=== PATIENT | female | born 1950 | race Caucasian/White ===

== ENCOUNTER 2016-11-20 16:53 | Inpatient (IN) | payer MEDICARE, OTHER ==
[~2016-11-20] VITALS: Ht 172.7 cm; Wt 77.6 kg
[2016-11-20] MEDS ORDERED: ALBUTEROL SULFATE 2.5 MG/3 ML NEBU ONE ×2 (17:13→18:24)
[2016-11-20] MEDS ORDERED: IPRATROPIUM BROMIDE 0.5 MG/2.5 ML NEBU ONE (17:13)
[2016-11-20] MEDS ORDERED: IPRATROPIUM BROMIDE 0.5 MG/2.5 ML NEBU NEB ONE (17:15)
[2016-11-20] MEDS ORDERED: NITROGLYCERIN OINT 1 GM PACKET TP ONE ×2 (17:15→17:34)
[2016-11-20] MEDS ORDERED: LORAZEPAM 2 MG/1 ML VIAL IV ONE (17:15)
[2016-11-20] MEDS ORDERED: ALBUTEROL SULFATE 2.5 MG/3 ML NEBU NEB ONE ×2 (17:15→18:15)
--- NOTE | 2016-11-20 17:20 | NUR ---
GLORIA CATH AXCESSED, UNABLE TO DRAW BLOOD, PT THEBN REC'D ATIVAN PER MD ORDERS, EKG DONE, PT RECEIVING RESP TX.MONITOR SHOWS, NSR/XA7=643% ON ROOM AIR.
[2016-11-20] MEDS ORDERED: LORAZEPAM 2 MG/1 ML VIAL ONE (17:24)
[2016-11-20] MEDS ORDERED: ATOR40TA PO (17:44)
[2016-11-20] MEDS ORDERED: PROM25TA15 PO (17:44)
[2016-11-20] MEDS ORDERED: L. A1CAP5 PO (17:44)
[2016-11-20] MEDS ORDERED: BACL10TA PO (17:44)
[2016-11-20] MEDS ORDERED: POTA20TA83 PO (17:44)
[2016-11-20] MEDS ORDERED: SPIR25TA PO (17:44)
[2016-11-20] MEDS ORDERED: ATEN25TA PO (17:44)
[2016-11-20] MEDS ORDERED: MOME17SP NS (17:44)
[2016-11-20] MEDS ORDERED: HYDR-548 PO (17:44)
[2016-11-20] MEDS ORDERED: IPRA3AMP IH (17:44)
[2016-11-20] MEDS ORDERED: LUBI24CA5 PO (17:44)
[2016-11-20] MEDS ORDERED: FURO40TA5 PO (17:44)
[2016-11-20] MEDS ORDERED: TRAM50TA2 PO (17:44)
[2016-11-20] MEDS ORDERED: DIPH50CA37 PO (17:44)
[2016-11-20] MEDS ORDERED: ASPI-605 PO (17:44)
[2016-11-20] MEDS ORDERED: ACLI400A2 IH (17:44)
[2016-11-20] MEDS ORDERED: ESOM40CA PO (17:44)
[2016-11-20] MEDS ORDERED: GABA300C PO (17:44)
[2016-11-20] MEDS ORDERED: ALBU8HFA4 IH (17:44)
[2016-11-20] MEDS ORDERED: IBUP-1958 PO (17:44)
[2016-11-20] MEDS ORDERED: ISOS60TA4 PO (17:44)
[2016-11-20 17:48] LABS: BASOPHILS # (AUTO) 0.1 K/uL (0.0-8.0); BASOPHILS % (AUTO) 1.2 % (0.0-2.0); CREATININE 1.8 mg/dL (0.6-1.3); EOSINOPHILS # (AUTO) 0.1 K/uL (0.0-0.7); EOSINOPHILS % (AUTO) 1.4 % (0.0-7.0); HEMATOCRIT 44.3 % (37-47); HEMOGLOBIN 14.5 G/DL (12.0-16.0); LYMPHOCYTES # (AUTO) 2.8 K/UL (0.8-4.8); LYMPHOCYTES % (AUTO) 35.3 % (20.5-51.5); MEAN CORPUSCULAR HEMOGLOBIN 27.8 UUG (27.0-31.0); MEAN CORPUSCULAR HGB CONC 33 g/dL (32.0-37.0); MEAN CORPUSCULAR VOLUME 85.2 FL (81.0-99.0); MONOCYTES # (AUTO) 0.3 K/UL (0.1-1.30); NEUTROPHILS # (AUTO) 4.6 K/UL (1.8-8.9); NEUTROPHILS % (AUTO) 58.1 % (38.5-71.5); PLATELET COUNT (AUTO) 284 K/UL (150-450); POTASSIUM 4.4 mmol/L (3.5-5.1); WHITE BLOOD COUNT (AUTO) 7.9 K/UL (4.0-11.2)
[2016-11-20 17:53] LABS: BILIRUBIN,DIRECT 0.1 mg/dL (0.0-0.2); BILIRUBIN,TOTAL 0.4 mg/dL (0.2-1.0); TOTAL PROTEIN, SERUM 8.4 g/dL (6.4-8.2)
[2016-11-20] MEDS ORDERED: CLOPIDOGREL 75 MG TABLET PO ONE (18:00)
[2016-11-20] MEDS ORDERED: CLOPIDOGREL 75 MG TABLET ONE (18:13)
[2016-11-20] MEDS ORDERED: LEVOFLOXACIN 750 MG/D5W 150 ML PIGGYBACK IV ONE (18:30)
--- NOTE | 2016-11-20 18:46 | NUR ---
NTG PASTE REMOVED DUE TO BP=81/48, SY=109, DR JULES NOTIFIED.
[2016-11-20] MEDS ORDERED: LEVOFLOXACIN 750MG/D5W 150 ML IV ONE (19:08)
--- NOTE | 2016-11-20 19:17 | NUR ---
SBAR REPORT TO LATHA SAEZ -2ND FLOOR. ALSO REPORT TO ZAKIYA VALENTINE, PRESENTLY PT RECEIVING, LEVAQUIN IV PB.
[2016-11-20] MEDS ORDERED: MORPHINE SULFATE 2 MG/1 ML DISP.SYRIN IV PRN (19:30)
[2016-11-20] MEDS ORDERED: ACETAMINOPHEN 325 MG TABLET PO PRN (19:30)
[2016-11-20] MEDS ORDERED: HYDROCODONE/APAP 10-325 MG TABLET PO PRN (19:30)
[2016-11-20] MEDS ORDERED: diphenhydrAMINE 50 MG CAPSULE PO PRN (19:30)
[2016-11-20 20:00] VITALS: BP 99/67
--- NOTE | 2016-11-20 20:08 | NUR ---
Pt. admitted to TELE, under care of Dr. Montague Belongs List completed
[2016-11-20] MEDS: IV 1/2NS 1000 ML 1,000 ML IV PRN (20:28)
[2016-11-20] MEDS: ATORVASTATIN 40 MG TABLET PO SCH (20:48)
[2016-11-20] MEDS: GABAPENTIN 300 MG CAPSULE PO SCH (20:48)
[2016-11-20] MEDS: BACLOFEN 10 MG TABLET PO SCH (20:48)
[2016-11-20] MEDS: TRAMADOL HCL 50 MG TABLET PO PRN (20:49)
[2016-11-20] MEDS: PROMETHAZINE HCL 25 MG TABLET PO PRN (21:00)
[2016-11-20] MEDS: METOPROLOL TARTRATE 25 MG TABLET PO SCH (21:00)
[2016-11-20] MEDS: methylPREDNISolone SOD SUCC 40 MG/ML VIAL IV SCH (22:00)
[2016-11-20] MEDS: ALBUTEROL SULFATE 2.5 MG/3 ML NEBU NEB PRN (23:17)
[2016-11-20] MEDS: IPRATROPIUM BROMIDE 0.5 MG/2.5 ML NEBU NEB PRN (23:17)
[2016-11-21 00:33] VITALS: BP 106/64
--- NOTE | 2016-11-21 01:26 | NUR ---
NSG: received pt. via [employer] around 1999, alert oriented x4. Diagnosis of COPD. Complained of back pain, pain meds given. Relief noted, patient asleep and well rested. Vital signs stable. All needs attended. Will continue to monitor.
[2016-11-21] MEDS: PROMETHAZINE HCL 25 MG TABLET PO PRN ×3 (02:52→18:03)
[2016-11-21] MEDS ORDERED: HYDROCODONE/APAP 10-325 MG TABLET ONE (03:00)
[2016-11-21] MEDS: GABAPENTIN 300 MG CAPSULE PO SCH ×3 (03:35→20:11)
[2016-11-21] MEDS: ALBUTEROL SULFATE 2.5 MG/3 ML NEBU NEB PRN ×3 (04:01→20:07)
[2016-11-21] MEDS: IPRATROPIUM BROMIDE 0.5 MG/2.5 ML NEBU NEB PRN ×3 (04:01→20:07)
[2016-11-21 04:12] LABS: *BILIRUBIN,URIN NEGATIVE (NEGATIVE); *BLOOD, URINE 1+ (NEGATIVE); *CLARITY,URINE SLIGHTLY CLOUDY (CLEAR); *COLOR,URINE YELLOW (YELLOW); *KETONES,URINE NEGATIVE (NEGATIVE); *PROTEIN,URINE 1+ (NEGATIVE); *UROBILINOGEN,URINE 0.2 E.U./dl (NORMAL); LEUKOCYTE ESTERASE ,URINE 3+ (NEGATIVE); NITRITE, URINE NEGATIVE (NEGATIVE); PH,URINE 5.5 (5.0-8.0); UGLUCOSE NEGATIVE (NEGATIVE)
[2016-11-21 04:17] LABS: BACTERIA,URINE MANY /HPF (NONE SEEN); RBC,URINE 0-3 /HPF (0-3); WBC,URINE 80-100 /HPF (0-3)
[2016-11-21 04:18] LABS: SQUAMOUS EPITHELIAL CELL,UR MODERATE /HPF (NONE SEEN)
[2016-11-21] MEDS: methylPREDNISolone SOD SUCC 40 MG/ML VIAL IV SCH ×3 (05:58→21:03)
[2016-11-21] MEDS: PANTOPRAZOLE SODIUM 40 MG TABLET.DR PO SCH (06:02)
[2016-11-21] MEDS: BACLOFEN 10 MG TABLET PO SCH ×2 (06:36→20:11)
[2016-11-21 07:04] LABS: BILIRUBIN,TOTAL 0.2 mg/dL (0.2-1.0); CREATININE 1.7 mg/dL (0.6-1.3); MAGNESIUM 1.9 mg/dL (1.8-2.4); POTASSIUM 4.4 mmol/L (3.5-5.1); TOTAL PROTEIN, SERUM 7.5 g/dL (6.4-8.2)
[2016-11-21 07:07] LABS: BASOPHILS % (AUTO) 0.2 % (0.0-2.0); EOSINOPHILS # (AUTO) 0.1 K/uL (0.0-0.7); EOSINOPHILS % (AUTO) 0.9 % (0.0-7.0); HEMATOCRIT 38.5 % (37-47); HEMOGLOBIN 12.5 G/DL (12.0-16.0); LYMPHOCYTES % (AUTO) 15.5 % (20.5-51.5); MEAN CORPUSCULAR HEMOGLOBIN 27.8 UUG (27.0-31.0); MEAN CORPUSCULAR HGB CONC 32 g/dL (32.0-37.0); MEAN CORPUSCULAR VOLUME 85.8 FL (81.0-99.0); MONOCYTES # (AUTO) 0.1 K/UL (0.1-1.30); MONOCYTES % (AUTO) 2.2 % (0.0-11.0); NEUTROPHILS # (AUTO) 4.9 K/UL (1.8-8.9); NEUTROPHILS % (AUTO) 81.2 % (38.5-71.5); PLATELET COUNT (AUTO) 260 K/UL (150-450); RED BLOOD CELL COUNT(AUTO) 4.49 MIL/UL (4.2-5.4); WHITE BLOOD COUNT (AUTO) 6.1 K/UL (4.0-11.2)
[2016-11-21 07:08] LABS: THYROID STIMULATING HORMONE 1.095 mIU/mL (0.358-3.740)
--- NOTE | 2016-11-21 08:00 | NUR ---
RESTING IN BED WITH EYES NO SIGNS OF PAIN OR DISTRESS, SR ON MONITOR
[2016-11-21] MEDS: TRAMADOL HCL 50 MG TABLET PO PRN ×2 (08:03→16:46)
[2016-11-21] MEDS: ASPIRIN EC 81 MG TABLET.DR PO SCH (08:04)
[2016-11-21] MEDS: MOMETASONE FUROATE NASAL 17 GM SPRAY.PUMP NS SCH ×2 (08:05→16:43)
[2016-11-21] MEDS: METOPROLOL TARTRATE 25 MG TABLET PO SCH ×2 (08:05→21:04)
[2016-11-21] MEDS: ISOSORBIDE MONONITRATE 60 MG TAB.SR.24H PO SCH (08:05)
[2016-11-21 11:25] VITALS: BP 114/68
[2016-11-21] MEDS: IV 1/2NS 1000 ML 1,000 ML IV PRN (11:47)
--- NOTE | 2016-11-21 12:00 | NUR ---
SEEN BY PHYSICAL THERAPIST SEE NOTES, PAIN ASSESSMENT Q2 HRS
[2016-11-21] MEDS: HYDROCODONE/APAP 10-325 MG TABLET PO PRN ×2 (12:03→20:12)
[2016-11-21 15:48] VITALS: BP 133/74
--- NOTE | 2016-11-21 16:09 | NUR ---
SEEN BY DR DOZIER SEE NOTES, RSTING COMFORTABLY IN BED NO SIGNS OF PAIN OR DISTRESS SR/SB ON MONITOR
[2016-11-21] MEDS ORDERED: LEVOFLOXACIN 250MG /D5W 250 MG in PREMIXED 1 EACH IV SCH (18:00)
[2016-11-21] MEDS ORDERED: DEXTROSE 50% 50 ML DISP.SYRIN IV PRN (19:15)
[2016-11-21 20:00] VITALS: BP 106/57
[2016-11-21] MEDS: PROCHLORPERAZINE MALEATE 10 MG TABLET PO PRN (20:11)
[2016-11-21 21:00] VITALS: BP 114/53
[2016-11-21] MEDS: ATORVASTATIN 40 MG TABLET PO SCH (21:03)
[2016-11-21 21:04] LABS: *CREATININE,URINE 64.5 mg/dL (30-125)
[2016-11-21] MEDS: BLOOD SUGAR DIAGNOSTIC 1 EACH STRIP VI SCH (21:04)
[2016-11-21] MEDS: INSULIN REGULAR, HUMAN 300 UNIT/3 ML VIAL SQ PRN (21:05)
[2016-11-22] VITALS: BP 97/46
[2016-11-22] MEDS: GABAPENTIN 300 MG CAPSULE PO SCH ×3 (03:11→20:09)
[2016-11-22] MEDS: IV 1/2NS 1000 ML 1,000 ML IV PRN ×2 (03:11→22:44)
[2016-11-22 04:00] VITALS: BP 95/49
[2016-11-22] MEDS: PANTOPRAZOLE SODIUM 40 MG TABLET.DR PO SCH (06:10)
[2016-11-22 06:54] LABS: CREATININE 1.1 mg/dL (0.6-1.3); MAGNESIUM 2.1 mg/dL (1.8-2.4); PHOSPHOROUS 2.8 mg/dL (2.5-4.9); POTASSIUM 4.9 mmol/L (3.5-5.1)
[2016-11-22] MEDS: BLOOD SUGAR DIAGNOSTIC 1 EACH STRIP VI SCH ×4 (07:11→22:44)
[2016-11-22 07:28] LABS: EOSINOPHILS # (AUTO) 0.2 K/uL (0.0-0.7); HEMATOCRIT 34.4 % (37-47); HEMOGLOBIN 11.4 G/DL (12.0-16.0); LYMPHOCYTES # (AUTO) 0.8 K/UL (0.8-4.8); LYMPHOCYTES % (AUTO) 4.8 % (20.5-51.5); MEAN CORPUSCULAR HEMOGLOBIN 28.4 UUG (27.0-31.0); MEAN CORPUSCULAR HGB CONC 33 g/dL (32.0-37.0); MEAN CORPUSCULAR VOLUME 86.1 FL (81.0-99.0); MONOCYTES # (AUTO) 0.5 K/UL (0.1-1.30); MONOCYTES % (AUTO) 2.9 % (0.0-11.0); NEUTROPHILS # (AUTO) 14.8 K/UL (1.8-8.9); NEUTROPHILS % (AUTO) 91.3 % (38.5-71.5); PLATELET COUNT (AUTO) 235 K/UL (150-450); WHITE BLOOD COUNT (AUTO) 16.3 K/UL (4.0-11.2)
[2016-11-22] MEDS: BACLOFEN 10 MG TABLET PO SCH ×2 (07:44→20:09)
[2016-11-22] MEDS: INSULIN REGULAR, HUMAN 300 UNIT/3 ML VIAL SQ PRN ×4 (07:44→22:46)
[2016-11-22] MEDS: MOMETASONE FUROATE NASAL 17 GM SPRAY.PUMP NS SCH ×2 (08:12→16:46)
[2016-11-22] MEDS: methylPREDNISolone SOD SUCC 40 MG/ML VIAL IV SCH ×2 (08:12→20:10)
[2016-11-22] MEDS: ASPIRIN EC 81 MG TABLET.DR PO SCH (08:17)
[2016-11-22] MEDS: ISOSORBIDE MONONITRATE 60 MG TAB.SR.24H PO SCH (08:18)
[2016-11-22] MEDS: METOPROLOL TARTRATE 25 MG TABLET PO SCH ×2 (08:18→20:10)
[2016-11-22] MEDS: HYDROCODONE/APAP 10-325 MG TABLET PO PRN ×2 (08:26→20:09)
[2016-11-22] MEDS: PROCHLORPERAZINE MALEATE 10 MG TABLET PO PRN ×2 (08:26→20:09)
[2016-11-22] MEDS: ALBUTEROL SULFATE 2.5 MG/3 ML NEBU NEB PRN ×3 (10:35→19:41)
[2016-11-22] MEDS: IPRATROPIUM BROMIDE 0.5 MG/2.5 ML NEBU NEB PRN ×3 (10:35→19:41)
[2016-11-22 11:38] VITALS: BP 117/54
[2016-11-22] MEDS: TRAMADOL HCL 50 MG TABLET PO PRN (14:29)
[2016-11-22 15:34] VITALS: BP 112/60
[2016-11-22] MEDS: LEVOFLOXACIN 500 MG/D5W 500 MG in PREMIXED 1 EACH IV SCH (16:47)
[2016-11-22 19:52] VITALS: BP 100/42
[2016-11-22] MEDS: ATORVASTATIN 40 MG TABLET PO SCH (20:09)
[2016-11-23] MEDS: GABAPENTIN 300 MG CAPSULE PO SCH ×3 (03:10→20:19)
--- NOTE | 2016-11-23 04:00 | NUR ---
PT SLEEPING WELL OVERNIGHT, MEDICATED FOR BACK AND NECK PAIN,AMBULATES TO BATHROOM WITH ASSIST STILL NO BM BUT PASS GAS.CONTINUE WITH IV FLUIDS AND ANTIBIOTICS ,VSS,AFEBRILE.NO SIGNIFICANT.
[2016-11-23 04:13] VITALS: BP 106/36
[2016-11-23] MEDS: PANTOPRAZOLE SODIUM 40 MG TABLET.DR PO SCH (06:25)
[2016-11-23] MEDS: BLOOD SUGAR DIAGNOSTIC 1 EACH STRIP VI SCH ×4 (06:27→20:22)
[2016-11-23 06:48] LABS: BASOPHILS % (AUTO) 0.1 % (0.0-2.0); EOSINOPHILS % (AUTO) 0.1 % (0.0-7.0); HEMATOCRIT 33.8 % (37-47); HEMOGLOBIN 11.3 G/DL (12.0-16.0); LYMPHOCYTES # (AUTO) 0.8 K/UL (0.8-4.8); LYMPHOCYTES % (AUTO) 6.2 % (20.5-51.5); MEAN CORPUSCULAR HEMOGLOBIN 28.8 UUG (27.0-31.0); MEAN CORPUSCULAR HGB CONC 33 g/dL (32.0-37.0); MEAN CORPUSCULAR VOLUME 86.2 FL (81.0-99.0); MONOCYTES # (AUTO) 0.4 K/UL (0.1-1.30); MONOCYTES % (AUTO) 3.1 % (0.0-11.0); NEUTROPHILS # (AUTO) 11.4 K/UL (1.8-8.9); NEUTROPHILS % (AUTO) 90.5 % (38.5-71.5); PLATELET COUNT (AUTO) 236 K/UL (150-450); RED BLOOD CELL COUNT(AUTO) 3.92 MIL/UL (4.2-5.4); WHITE BLOOD COUNT (AUTO) 12.6 K/UL (4.0-11.2)
[2016-11-23 07:04] LABS: BILIRUBIN,TOTAL 0.1 mg/dL (0.2-1.0); PHOSPHOROUS 3.3 mg/dL (2.5-4.9); POTASSIUM 4.6 mmol/L (3.5-5.1); TOTAL PROTEIN, SERUM 6.7 g/dL (6.4-8.2)
[2016-11-23 07:14] LABS: MAGNESIUM 2.1 mg/dL (1.8-2.4)
[2016-11-23 07:36] LABS: LYMPHOCYTES % (MANUAL) 8 % (20-40); MONOCYTES % (MANUAL) 3 % (2-10); NEUTROPHILS % (MANUAL) 89 % (42-75)
[2016-11-23] MEDS: HYDROCODONE/APAP 10-325 MG TABLET PO PRN ×2 (08:41→16:40)
[2016-11-23] MEDS: ISOSORBIDE MONONITRATE 60 MG TAB.SR.24H PO SCH (08:42)
[2016-11-23] MEDS: BACLOFEN 10 MG TABLET PO SCH ×2 (08:42→20:19)
[2016-11-23] MEDS: ASPIRIN EC 81 MG TABLET.DR PO SCH (08:43)
[2016-11-23] MEDS: PROCHLORPERAZINE MALEATE 10 MG TABLET PO PRN ×2 (08:43→16:39)
[2016-11-23] MEDS: METOPROLOL TARTRATE 25 MG TABLET PO SCH ×2 (08:43→20:19)
[2016-11-23] MEDS: MOMETASONE FUROATE NASAL 17 GM SPRAY.PUMP NS SCH ×2 (08:44→16:39)
[2016-11-23] MEDS: methylPREDNISolone SOD SUCC 40 MG/ML VIAL IV SCH ×2 (08:44→20:20)
[2016-11-23 09:09] LABS: ABG BASE EXCESS -0.3 mmol/L; ABG HCO3 23.8 mmol/L; ABG PCO2 37.3 mmHg (35.0-45.0); ABG PH 7.423 (7.350-7.450); ABG PO2 80.3 mmHg (75.0-100.0); ABG SITE RIGHT RADIAL; ABG TOTAL HEMOGLOBIN 12.9 G/dL (12.0-16.0); COHb 0.5 % (0.5-1.5); MetHb 0.3 % (0.0-1.5); O2Hb 95.1 % (94.0-97.0); VENT MODE Mask - Venturi
[2016-11-23] MEDS: ALBUTEROL SULFATE 2.5 MG/3 ML NEBU NEB PRN ×2 (11:02→19:23)
[2016-11-23] MEDS: IPRATROPIUM BROMIDE 0.5 MG/2.5 ML NEBU NEB PRN ×2 (11:02→19:22)
[2016-11-23 11:37] VITALS: BP 110/58
[2016-11-23] MEDS: TRAMADOL HCL 50 MG TABLET PO PRN (12:09)
[2016-11-23 15:28] VITALS: BP 108/64
[2016-11-23] MEDS: LEVOFLOXACIN 500 MG/D5W 500 MG in PREMIXED 1 EACH IV SCH (16:41)
[2016-11-23] MEDS ORDERED: Blood Sugar Diagnostic VI (16:52)
[2016-11-23] MEDS ORDERED: POTA10TA15 PO (16:52)
[2016-11-23] MEDS ORDERED: HYDR-548 PO (16:52)
[2016-11-23] MEDS ORDERED: METO25TA6 PO (16:52)
[2016-11-23] MEDS ORDERED: ALBU2.5V7 NEB (16:52)
[2016-11-23] MEDS ORDERED: PRED20TA PO (16:52)
[2016-11-23] MEDS ORDERED: PANT40TA2 PO (16:52)
[2016-11-23] MEDS ORDERED: ACET325T53 PO (16:52)
[2016-11-23] MEDS ORDERED: FURO-152 PO (16:52)
[2016-11-23] MEDS ORDERED: BACL10TA PO (16:52)
[2016-11-23] MEDS ORDERED: GABA-534 PO (16:52)
[2016-11-23] MEDS ORDERED: IPRA0.2S6 NEB (16:52)
[2016-11-23] MEDS ORDERED: DEXT50DI8 IV (16:52)
[2016-11-23] MEDS ORDERED: INSU100V28 SQ (16:52)
[2016-11-23] MEDS: INSULIN REGULAR, HUMAN 300 UNIT/3 ML VIAL SQ PRN (17:14)
[2016-11-23 20:00] VITALS: BP 138/75
[2016-11-23 20:19] VITALS: BP 138/75
[2016-11-23] MEDS: ATORVASTATIN 40 MG TABLET PO SCH (20:19)
--- NOTE | 2016-11-23 20:54 | NUR ---
NSG: TRANSFER TO ARU, ALL HS MEDS GIVEN. BELONGINGS AND PAPERWORKS SENT WITH PT.
== END 2016-11-23 20:53 | DRG 190 ==
LOC: ER 16:54 → TELE 18:42 → MED 11-22 11:54
PROVIDERS: ADMIT Internal Medicine; ATTEND Internal Medicine
DX: J44.0 Chronic obstructive pulmonary disease with (acute) lower respiratory infection (principal); N17.0 Acute kidney failure with tubular necrosis; N39.0 Urinary tract infection, site not specified; D68.59 Other primary thrombophilia; I69.351 Hemiplegia and hemiparesis following cerebral infarction affecting right dominant side; J20.8 Acute bronchitis due to other specified organisms; J44.1 Chronic obstructive pulmonary disease with (acute) exacerbation; M06.9 Rheumatoid arthritis, unspecified; K58.1 Irritable bowel syndrome with constipation; K21.9 Gastro-esophageal reflux disease without esophagitis; Z87.01 Personal history of pneumonia (recurrent); Z99.81 Dependence on supplemental oxygen; I25.2 Old myocardial infarction; Z83.49 Family history of other endocrine, nutritional and metabolic diseases; Z83.3 Family history of diabetes mellitus; Z82.49 Family history of ischemic heart disease and other diseases of the circulatory system; Z87.891 Personal history of nicotine dependence; Z90.49 Acquired absence of other specified parts of digestive tract; Z88.6 Allergy status to analgesic agent; Z74.09 Other reduced mobility; M19.90 Unspecified osteoarthritis, unspecified site; I34.1 Nonrheumatic mitral (valve) prolapse; I25.10 Atherosclerotic heart disease of native coronary artery without angina pectoris; I13.10 Hypertensive heart and chronic kidney disease without heart failure, with stage 1 through stage 4 chronic kidney disease, or unspecified chronic kidney disease; E11.22 Type 2 diabetes mellitus with diabetic chronic kidney disease; N18.9 Chronic kidney disease, unspecified; Z88.8 Allergy status to other drugs, medicaments and biological substances; Z88.1 Allergy status to other antibiotic agents; J84.10 Pulmonary fibrosis, unspecified; H40.9 Unspecified glaucoma; G89.29 Other chronic pain; T38.0X5A Adverse effect of glucocorticoids and synthetic analogues, initial encounter; Y92.89 Other specified places as the place of occurrence of the external cause; Z79.82 Long term (current) use of aspirin; Z79.899 Other long term (current) drug therapy; F41.9 Anxiety disorder, unspecified; E86.9 Volume depletion, unspecified; R94.31 Abnormal electrocardiogram [ECG] [EKG]
CPT/HCPCS: 36415; 36600; 70030-TC; 71010; 83735; 84100; 84300; 84443; 85025; 85730; 93005; 93307; 94640; 94664; 97116; 97161; 97530; A4663; J1815; J1956; J2060; J2270; J2920; J3490; J3535; J3590; Q0163; Q0164; Q0169

== ENCOUNTER 2016-11-23 12:12 | Inpatient (IN) | payer MEDICARE, OTHER ==
[~2016-11-23] VITALS: Ht 167.6 cm; Wt 71.2 kg
[~2016-11-23 12:12] MED LIST: ACLI400A2 IH; ALBU8HFA4 IH; ASPI-605 PO; ATEN25TA PO; ATOR40TA PO; BACL10TA PO; DIPH50CA37 PO; ESOM40CA PO; FURO40TA5 PO; GABA300C PO; HYDR-548 PO; IBUP-1958 PO; IPRA3AMP IH; ISOS60TA4 PO; L. A1CAP5 PO; LUBI24CA5 PO; MOME17SP NS; POTA20TA83 PO; PROM25TA15 PO; SPIR25TA PO; TRAM50TA2 PO
[2016-11-23] MEDS ORDERED: INSU100V28 SQ (16:52)
[2016-11-23] MEDS ORDERED: DEXT50DI8 IV (16:52)
[2016-11-23] MEDS ORDERED: POTA10TA15 PO (16:52)
[2016-11-23] MEDS ORDERED: IPRA0.2S6 NEB (16:52)
[2016-11-23] MEDS ORDERED: BACL10TA PO (16:52)
[2016-11-23] MEDS ORDERED: ACET325T53 PO (16:52)
[2016-11-23] MEDS ORDERED: HYDR-548 PO (16:52)
[2016-11-23] MEDS ORDERED: ALBU2.5V7 NEB (16:52)
[2016-11-23] MEDS ORDERED: PANT40TA2 PO (16:52)
[2016-11-23] MEDS ORDERED: Blood Sugar Diagnostic VI (16:52)
[2016-11-23] MEDS ORDERED: PRED20TA PO (16:52)
[2016-11-23] MEDS ORDERED: FURO-152 PO (16:52)
[2016-11-23] MEDS ORDERED: GABA-534 PO (16:52)
[2016-11-23] MEDS ORDERED: METO25TA6 PO (16:52)
--- NOTE | 2016-11-23 21:05 | NUR ---
ADMITTED TO ARU, ROOM 103 WITH DIAGNOSIS OF COPD/ CHF. ORIENTED TO ROOM, CALL LIGHT, TV, AND ARU ROUTINE. ON OXYGEN AT 3 LPM/NASAL CANNULA WITHOUT C/O SOB. AND SATS GREATER THAN 93%. NO C/O PAIN OR DISCOMFORT.ADMISSION INTERVIEW QUESTIONS INITIATED.
[2016-11-23 21:30] VITALS: BP 135/74
[2016-11-23] MEDS ORDERED: Z GUARD REMEDY PASTE 57 GM TUBE TOP PRN (22:00)
[2016-11-23] MEDS ORDERED: BACLOFEN 10 MG TABLET PO SCH (22:30)
[2016-11-23] MEDS ORDERED: DEXTROSE 50% 50 ML DISP.SYRIN IV PRN ×2 (22:30)
[2016-11-23] MEDS ORDERED: INSULIN REGULAR, HUMAN 300 UNIT/3 ML VIAL SQ PRN (22:30)
--- NOTE | 2016-11-23 22:30 | NUR ---
DR COSTELLO NOTIFIED OF ADMISSION AND NEED TO COMPLETE MED RECON
[2016-11-23] MEDS: ALBUTEROL SULFATE 2.5 MG/3 ML NEBU NEB PRN (23:38)
[2016-11-23] MEDS: IPRATROPIUM BROMIDE 0.5 MG/2.5 ML NEBU NEB PRN (23:38)
[2016-11-23] MEDS: GABAPENTIN 300 MG CAPSULE PO SCH (23:41)
--- NOTE | 2016-11-23 23:41 | NUR ---
MED REC DONE BY DR COSTELLO. FITST DOSE MEDS GIVEN NOW.RECEIVING PRN HHN NOW [place] FOR C/O SLIGHT SOB WITH ACTIVITY. SATS GREATER THAN 95 ON OXYGEN AT 3 LPM/ NASAL CANNULA,
[2016-11-23] MEDS ORDERED: GABAPENTIN 300 MG CAPSULE ONE (23:49)
[2016-11-23] MEDS ORDERED: BACLOFEN 10 MG TABLET ONE (23:49)
[2016-11-23] MEDS ORDERED: ALBUTEROL SULFATE 2.5 MG/3 ML NEBU ONE (23:50)
[2016-11-23] MEDS ORDERED: IPRATROPIUM BROMIDE 0.5 MG/2.5 ML NEBU ONE (23:50)
[2016-11-24] MEDS: TRAMADOL HCL 50 MG TABLET PO PRN ×3 (01:41→21:43)
[2016-11-24] MEDS: PROMETHAZINE HCL 25 MG TABLET PO PRN ×4 (01:42→21:42)
[2016-11-24] MEDS ORDERED: TRAMADOL HCL 50 MG TABLET ONE (01:50)
[2016-11-24] MEDS ORDERED: PROMETHAZINE HCL 25 MG TABLET ONE (01:50)
--- NOTE | 2016-11-24 06:00 | NUR ---
SLEPT WELL TONIGHT. DOES HAVE A BIT OF SOB ON ROOM AIR WHEN GOING TO TOILET BUT RECOVERS WITHIN 5 MINS WHEN BACK IN BED. AMBULATED TO TOILET WITH WALKER AND STANDBY ASSIST WITH STEADY GAIT.RESTING EASY AT PRESENT WITHOUT C/O PAIN. MORNING ACCUCHECK IS 113 TODAY.CALL LIGHT WITHIN REACH
[2016-11-24] MEDS: PANTOPRAZOLE SODIUM 40 MG TABLET.DR PO SCH (06:32)
[2016-11-24] MEDS: GABAPENTIN 300 MG CAPSULE PO SCH ×3 (06:33→21:35)
[2016-11-24] MEDS: BLOOD SUGAR DIAGNOSTIC 1 EACH STRIP VI SCH ×4 (06:38→21:35)
[2016-11-24] MEDS ORDERED: PANTOPRAZOLE SODIUM 40 MG TABLET.DR PO ONE (06:41)
[2016-11-24] MEDS ORDERED: GABAPENTIN 300 MG CAPSULE ONE (06:41)
--- NOTE | 2016-11-24 07:07 | NUR ---
Patient received from mold shifter, resting comfortably in bed, no signs of acute distress noted. VS WNL, no complaints of pain at this time. No other verbalized needs at this time, family observed at bedside, no needs noted. Safety and fall precautions maintained, call light within reach.
[2016-11-24 08:01] VITALS: BP 123/70
[2016-11-24] MEDS: ISOSORBIDE MONONITRATE 60 MG TAB.SR.24H PO SCH (08:53)
[2016-11-24] MEDS: ASPIRIN EC 81 MG TABLET.DR PO SCH (08:53)
[2016-11-24] MEDS: HYDROCODONE/APAP 10-325 MG TABLET PO PRN ×2 (08:53→15:04)
[2016-11-24] MEDS: METOPROLOL TARTRATE 25 MG TABLET PO SCH ×2 (08:54→21:00)
[2016-11-24] MEDS: FUROSEMIDE 20 MG TABLET PO SCH (08:54)
[2016-11-24] MEDS ORDERED: predniSONE 20 MG TABLET PO SCH (09:00)
[2016-11-24] MEDS: POTASSIUM CHLORIDE 10 MEQ CAPSULE.SA PO SCH (09:27)
[2016-11-24] MEDS: BACLOFEN 10 MG TABLET PO SCH ×2 (09:27→21:36)
[2016-11-24] MEDS: predniSONE 20 MG TABLET PO SCH ×2 (11:04→17:15)
--- NOTE | 2016-11-24 19:30 | NUR ---
RECEIVED PATIENT AWAKE, ALERT, AND ORIENTED X3 WITHOUT C/O PAIN, DISCOMFORT OR RESPIRATORY DISTRESS ON OXYGEN, RESTING COMFORTABLY IN BED. CONSTIPATED SINCE LAST SATURDAY. MED ORDERS OBTAINED.CALL LIGHT WITHIN REACH AND BED ALARM ON AAT.
[2016-11-24 20:00] VITALS: BP 110/69
[2016-11-24] MEDS ORDERED: MAGNESIUM HYDROXIDE 30 ML LIQUID UDC ONE (20:37)
[2016-11-24] MEDS ORDERED: BISACODYL 5 MG TABLET.DR PO ONE (21:00)
[2016-11-24] MEDS: ATORVASTATIN 40 MG TABLET PO SCH (21:35)
[2016-11-24 21:44] VITALS: BP 110/69
--- NOTE | 2016-11-25 | NUR ---
COMPLETED ABOUT 3800 ML OF THE GOLYTLY. HAD INCONTINENT LARGE BROWN STOOL. DOES NOT LOOK CLEAR AT ALL AT THIS POINT. STARTED CHANGE IN DIET TO NPO AFTER MIDNIGHT. PATIENT UNDERSTANDS NOT TO DRINK ANYTHING. CALL LIGHT WITHIN REACH
[2016-11-25] MEDS: PROMETHAZINE HCL 25 MG TABLET PO PRN ×3 (05:40→18:02)
[2016-11-25] MEDS: HYDROCODONE/APAP 10-325 MG TABLET PO PRN ×3 (05:41→18:01)
[2016-11-25] MEDS: GABAPENTIN 300 MG CAPSULE PO SCH ×3 (05:41→22:01)
--- NOTE | 2016-11-25 06:00 | NUR ---
SLEPT WELL TONIGHT.MORNING ACCUCHECK IS 88. MEDICATED FOR GENERALIZED PAIN OF ARTHRITIS. HAD LARGE SOFT BM RESPONSE FROM DULCOLAX. NO RESPIRATORY DISTRESS TONIGHT ON OXYGEN AT 2 LPM/NASAL CANNULA.STATES SHE FEELS BETTER TODAY SINCE ADMISSION. CALL LIGHT WITHIN REACH. APPEARS IN NAD
[2016-11-25] MEDS: PANTOPRAZOLE SODIUM 40 MG TABLET.DR PO SCH (06:05)
[2016-11-25] MEDS: BLOOD SUGAR DIAGNOSTIC 1 EACH STRIP VI SCH ×4 (06:54→22:08)
[2016-11-25 07:10] LABS: CREATININE 0.9 mg/dL (0.6-1.3); POTASSIUM 4.1 mmol/L (3.5-5.1)
[2016-11-25 07:21] LABS: BASOPHILS # (AUTO) 0.1 K/uL (0.0-8.0); BASOPHILS % (AUTO) 0.7 % (0.0-2.0); EOSINOPHILS % (AUTO) 0.1 % (0.0-7.0); HEMATOCRIT 36.6 % (37-47); HEMOGLOBIN 12.3 G/DL (12.0-16.0); LYMPHOCYTES # (AUTO) 1.5 K/UL (0.8-4.8); MEAN CORPUSCULAR HEMOGLOBIN 28.7 UUG (27.0-31.0); MEAN CORPUSCULAR HGB CONC 34 g/dL (32.0-37.0); MEAN CORPUSCULAR VOLUME 85.1 FL (81.0-99.0); MONOCYTES # (AUTO) 0.6 K/UL (0.1-1.30); MONOCYTES % (AUTO) 5.7 % (0.0-11.0); NEUTROPHILS # (AUTO) 7.8 K/UL (1.8-8.9); NEUTROPHILS % (AUTO) 78.5 % (38.5-71.5); PLATELET COUNT (AUTO) 278 K/UL (150-450)
--- NOTE | 2016-11-25 07:30 | NUR ---
RECIEVED PT LYING IN BED, AWAKE, ALERT AND ORIENTEDX3. VERY PLEASANT AND TALKS A LOT. MOVES ALL EXTREMETIES AND PT WALKS WITH A WALKER. NO APPARENT DISTRESS NOTED. PT IS ON O2 AT 2LNC FOR HER CHRONIC FIBROSIS. NO SOB NOTED AT THIS TIME.
[2016-11-25 07:32] VITALS: BP 120/62
--- NOTE | 2016-11-25 08:00 | NUR ---
ATE WELL FOR BREAKFAST.
--- NOTE | 2016-11-25 10:00 | NUR ---
PT HAS A PT ACTIVITY AND DOING WELL.
[2016-11-25] MEDS: SENNOSIDES/DOCUSATE SODIUM TABLET PO SCH (10:33)
[2016-11-25] MEDS: FUROSEMIDE 20 MG TABLET PO SCH (10:34)
[2016-11-25] MEDS: ISOSORBIDE MONONITRATE 60 MG TAB.SR.24H PO SCH (10:34)
[2016-11-25] MEDS: ASPIRIN EC 81 MG TABLET.DR PO SCH (10:34)
[2016-11-25] MEDS: BACLOFEN 10 MG TABLET PO SCH ×2 (10:35→22:02)
[2016-11-25] MEDS: predniSONE 20 MG TABLET PO SCH ×2 (10:47→18:01)
[2016-11-25] MEDS: POTASSIUM CHLORIDE 10 MEQ CAPSULE.SA PO SCH (10:47)
[2016-11-25] MEDS: METOPROLOL TARTRATE 25 MG TABLET PO SCH ×2 (10:48→22:03)
--- NOTE | 2016-11-25 11:50 | NUR ---
PT C/O PAIN ON HER LOWER BACK . MEDICATED WITH NORCO I TAB AND PHENERGAN 1 TAB. VSS.
[2016-11-25] MEDS: LIDOCAINE 5% PATCH TD SCH (12:46)
[2016-11-25] MEDS: IPRATROPIUM BROMIDE 0.5 MG/2.5 ML NEBU NEB PRN ×2 (15:11→19:24)
[2016-11-25] MEDS: ALBUTEROL SULFATE 2.5 MG/3 ML NEBU NEB PRN ×2 (15:11→19:24)
--- NOTE | 2016-11-25 17:00 | NUR ---
RECIEVED A CALL FROM [employer]. PT IS POSITIVE FOR MRSA NARES. NOTIFIED DR COSTELLO AND ORDERED BACTROBAN OINTMENT.
--- NOTE | 2016-11-25 18:00 | NUR ---
INFORMED THE PT ABOUT THE ISOLATION. PT C/O PAIN ON THE RIGHT SHOULDER, AND MEDICATED WITH NORCO 1 TAB AND PHENERGAN I TAB, TOLERATING WELL.
--- NOTE | 2016-11-25 19:30 | NUR ---
RECEIVED PATIENT AWAKE, ALERT, AND ORIENTED X3. NO C/O RESPIRATORY DISTRESS ON OXYGEN AT 2 LPM/ NASAL CANNULA. AMBULATED TO TOILET WITH WALKER AND STANDBY ASSIST.COLLECTED CLEAN CATCH URINE FOR U/A, AND C/S. SENT TO LAB. NO C/O DISCOMFORT AT PRESENT. IN NO ACUTE DISTRESS AT THIS TIME.CALL LIGHT WITHIN REACH AAT. BED ALARM ON
[2016-11-25 21:51] VITALS: BP 112/64
[2016-11-25] MEDS: ATORVASTATIN 40 MG TABLET PO SCH (22:00)
[2016-11-25] MEDS: MUPIROCIN 2% OINT 22 GM TUBE NS SCH (22:02)
[2016-11-25] MEDS: INSULIN REGULAR, HUMAN 300 UNIT/3 ML VIAL SQ PRN (22:18)
[2016-11-25 22:57] LABS: *BILIRUBIN,URIN NEGATIVE (NEGATIVE); *BLOOD, URINE 2+ (NEGATIVE); *CLARITY,URINE CLEAR (CLEAR); *COLOR,URINE YELLOW (YELLOW); *KETONES,URINE NEGATIVE (NEGATIVE); *PROTEIN,URINE NEGATIVE (NEGATIVE); *UROBILINOGEN,URINE 0.2 E.U./dl (NORMAL); LEUKOCYTE ESTERASE ,URINE TRACE (NEGATIVE); NITRITE, URINE NEGATIVE (NEGATIVE); PH,URINE 5.5 (5.0-8.0); UGLUCOSE NEGATIVE (NEGATIVE)
[2016-11-25 23:12] LABS: BACTERIA,URINE NONE SEEN /HPF (NONE SEEN); SQUAMOUS EPITHELIAL CELL,UR FEW /HPF (NONE SEEN)
[2016-11-26] MEDS: PROMETHAZINE HCL 25 MG TABLET PO PRN ×3 (00:34→23:00)
[2016-11-26] MEDS: HYDROCODONE/APAP 10-325 MG TABLET PO PRN ×4 (00:34→22:53)
[2016-11-26 01:30] LABS: *BILIRUBIN,URIN NEGATIVE (NEGATIVE); *BLOOD, URINE 1+ (NEGATIVE); *CLARITY,URINE CLEAR (CLEAR); *COLOR,URINE YELLOW (YELLOW); *KETONES,URINE NEGATIVE (NEGATIVE); *PROTEIN,URINE NEGATIVE (NEGATIVE); *UROBILINOGEN,URINE 0.2 E.U./dl (NORMAL); LEUKOCYTE ESTERASE ,URINE TRACE (NEGATIVE); NITRITE, URINE NEGATIVE (NEGATIVE); PH,URINE 5.5 (5.0-8.0); UGLUCOSE NEGATIVE (NEGATIVE)
[2016-11-26 01:41] LABS: BACTERIA,URINE NONE SEEN /HPF (NONE SEEN); SQUAMOUS EPITHELIAL CELL,UR FEW /HPF (NONE SEEN)
[2016-11-26] MEDS: TRAMADOL HCL 50 MG TABLET PO PRN ×3 (04:15→20:13)
[2016-11-26] MEDS: PANTOPRAZOLE SODIUM 40 MG TABLET.DR PO SCH (06:42)
[2016-11-26] MEDS: GABAPENTIN 300 MG CAPSULE PO SCH ×3 (06:42→22:53)
[2016-11-26] MEDS: BLOOD SUGAR DIAGNOSTIC 1 EACH STRIP VI SCH ×4 (06:49→20:16)
[2016-11-26 08:00] VITALS: BP 118/70
--- NOTE | 2016-11-26 08:00 | NUR ---
Received patient awake in bed, alert, verbally responsive, coherent, afebrile, not in any form of acute distress. She denies any pain or discomfort at this time. Call light placed within reach.
[2016-11-26] MEDS: SENNOSIDES/DOCUSATE SODIUM TABLET PO SCH (09:40)
[2016-11-26] MEDS: POTASSIUM CHLORIDE 10 MEQ CAPSULE.SA PO SCH (09:40)
[2016-11-26] MEDS: ASPIRIN EC 81 MG TABLET.DR PO SCH (09:41)
[2016-11-26] MEDS: BACLOFEN 10 MG TABLET PO SCH ×2 (09:41→20:12)
[2016-11-26] MEDS: ISOSORBIDE MONONITRATE 60 MG TAB.SR.24H PO SCH (09:45)
[2016-11-26] MEDS: LIDOCAINE 5% PATCH TD SCH (09:48)
[2016-11-26] MEDS: FUROSEMIDE 20 MG TABLET PO SCH (09:48)
[2016-11-26] MEDS: MUPIROCIN 2% OINT 22 GM TUBE NS SCH ×2 (09:49→20:11)
[2016-11-26] MEDS: IPRATROPIUM BROMIDE 0.5 MG/2.5 ML NEBU NEB PRN (10:39)
[2016-11-26] MEDS: ALBUTEROL SULFATE 2.5 MG/3 ML NEBU NEB PRN (10:39)
[2016-11-26] MEDS: predniSONE 20 MG TABLET PO SCH ×2 (11:05→17:55)
[2016-11-26] MEDS: METOPROLOL TARTRATE 25 MG TABLET PO SCH ×2 (11:05→20:12)
[2016-11-26] MEDS: MAGNESIUM HYDROXIDE 30 ML LIQUID UDC PO PRN (17:57)
[2016-11-26] MEDS: INSULIN REGULAR, HUMAN 300 UNIT/3 ML VIAL SQ PRN ×2 (18:59→20:18)
--- NOTE | 2016-11-26 19:30 | NUR ---
Received patient in bed. Alert and verbally responsive. Able to make needs known. On contact isolation for MRSA nares. All contact precautions taken by staff. No c/o pain and discomfort at this time. No acute distress. No SOB. Kept clean and dry. All needs attended to promptly. Call light within reach. Will continue to monitor.
[2016-11-26 20:00] VITALS: BP 105/64
[2016-11-26] MEDS: ATORVASTATIN 40 MG TABLET PO SCH (20:11)
[2016-11-27] MEDS: TRAMADOL HCL 50 MG TABLET PO PRN ×3 (02:16→21:11)
[2016-11-27] MEDS: GABAPENTIN 300 MG CAPSULE PO SCH ×3 (06:44→21:10)
[2016-11-27] MEDS: BLOOD SUGAR DIAGNOSTIC 1 EACH STRIP VI SCH ×4 (06:46→21:09)
[2016-11-27] MEDS: PANTOPRAZOLE SODIUM 40 MG TABLET.DR PO SCH (06:52)
[2016-11-27] MEDS: HYDROCODONE/APAP 10-325 MG TABLET PO PRN ×3 (07:14→19:23)
[2016-11-27] MEDS: PROMETHAZINE HCL 25 MG TABLET PO PRN ×3 (07:14→19:23)
[2016-11-27 07:30] VITALS: BP_SYST 118; BP_SYST 142; BP_DIAS 68; BP_DIAS 82
--- NOTE | 2016-11-27 07:44 | NUR ---
Patient slept most of the night. Pain medications given as ordered. No acute distress. No SOB. Kept clean and dry. Contact precautions observed. BS 113. No coverage needed. Endorsed to AM shift. 7am meds given. All needs attended to promptly. Call light within reach. Will continue to monitor.
[2016-11-27] MEDS: ISOSORBIDE MONONITRATE 60 MG TAB.SR.24H PO SCH (09:13)
[2016-11-27] MEDS: predniSONE 20 MG TABLET PO SCH (09:13)
[2016-11-27] MEDS: ASPIRIN EC 81 MG TABLET.DR PO SCH (09:14)
[2016-11-27] MEDS: METOPROLOL TARTRATE 25 MG TABLET PO SCH ×2 (09:14→21:10)
[2016-11-27] MEDS: SENNOSIDES/DOCUSATE SODIUM TABLET PO SCH (09:14)
[2016-11-27] MEDS: FUROSEMIDE 20 MG TABLET PO SCH (09:14)
[2016-11-27] MEDS: BACLOFEN 10 MG TABLET PO SCH ×2 (09:15→21:09)
[2016-11-27] MEDS: POTASSIUM CHLORIDE 10 MEQ CAPSULE.SA PO SCH (09:15)
[2016-11-27] MEDS: LIDOCAINE 5% PATCH TD SCH ×2 (09:15→09:55)
[2016-11-27] MEDS: MUPIROCIN 2% OINT 22 GM TUBE NS SCH ×2 (09:18→21:12)
[2016-11-27] MEDS: IPRATROPIUM BROMIDE 0.5 MG/2.5 ML NEBU NEB PRN (10:16)
[2016-11-27] MEDS: ALBUTEROL SULFATE 2.5 MG/3 ML NEBU NEB PRN (10:16)
[2016-11-27] MEDS: INSULIN REGULAR, HUMAN 300 UNIT/3 ML VIAL SQ PRN (17:15)
--- NOTE | 2016-11-27 17:21 | NUR ---
DAILY NOTE ROOM AIR SAT 91% WHILE AMBULATING IN HALLWAY WITH THERAPIST. O2 HAS BEEN OFF SINCE THIS AM HER SAT AT THIS TIME IS 93-94% ON ROOM AIR NO DISTRESS NOTED
--- NOTE | 2016-11-27 19:30 | NUR ---
Received patient in bed. Alert and verbally responsive. Able to make needs known. Denies any pain and discomfort. No acute distress. On contact precautions for MRSA nares. Contact precautions taken by staff. No c/o pain and discomfort at this time. No acute distress. No SOB. Kept clean and dry. All needs attended to promptly. Call light within reach. Will continue to monitor.
[2016-11-27 20:10] VITALS: BP 159/80
[2016-11-27] MEDS: ATORVASTATIN 40 MG TABLET PO SCH (21:09)
[2016-11-27] MEDS: MAGNESIUM HYDROXIDE 30 ML LIQUID UDC PO PRN (22:11)
[2016-11-28] MEDS: HYDROCODONE/APAP 10-325 MG TABLET PO PRN ×4 (02:33→20:35)
[2016-11-28] MEDS: PROMETHAZINE HCL 25 MG TABLET PO PRN ×6 (02:34→20:36)
[2016-11-28] MEDS: TRAMADOL HCL 50 MG TABLET PO PRN ×4 (03:38→23:13)
[2016-11-28] MEDS: GABAPENTIN 300 MG CAPSULE PO SCH ×3 (05:56→22:27)
[2016-11-28] MEDS: PANTOPRAZOLE SODIUM 40 MG TABLET.DR PO SCH (06:07)
--- NOTE | 2016-11-28 06:29 | NUR ---
Patient slept intermittently throughout the night. C/o pain in Right neck, hip and arm. Pain medication given as ordered. No acute distress noted. Patient verbalized she was unable to sleep at night because of pain. VS are stable. BS is 94. No coverage needed. No s/s of hypoglycemia. Skin is warm and dry to touch. Kept clean and dry. All needs attended to promptly. Call light within reach. Will continue to monitor.
[2016-11-28] MEDS: BLOOD SUGAR DIAGNOSTIC 1 EACH STRIP VI SCH ×4 (06:48→20:44)
[2016-11-28] MEDS: IPRATROPIUM BROMIDE 0.5 MG/2.5 ML NEBU NEB PRN ×3 (07:22→21:41)
[2016-11-28] MEDS: ALBUTEROL SULFATE 2.5 MG/3 ML NEBU NEB PRN ×3 (07:22→21:41)
[2016-11-28 08:00] VITALS: BP 118/75
[2016-11-28] MEDS: ASPIRIN EC 81 MG TABLET.DR PO SCH (08:29)
[2016-11-28] MEDS: SENNOSIDES/DOCUSATE SODIUM TABLET PO SCH (08:30)
[2016-11-28] MEDS: predniSONE 20 MG TABLET PO SCH (08:30)
[2016-11-28] MEDS: BACLOFEN 10 MG TABLET PO SCH ×2 (08:31→20:35)
[2016-11-28] MEDS: FUROSEMIDE 20 MG TABLET PO SCH (08:31)
[2016-11-28] MEDS: POTASSIUM CHLORIDE 10 MEQ CAPSULE.SA PO SCH (08:31)
[2016-11-28] MEDS: ISOSORBIDE MONONITRATE 60 MG TAB.SR.24H PO SCH (08:33)
[2016-11-28] MEDS: METOPROLOL TARTRATE 25 MG TABLET PO SCH ×2 (08:42→21:42)
[2016-11-28] MEDS: LIDOCAINE 5% PATCH TD SCH ×2 (08:42→08:43)
[2016-11-28] MEDS: MUPIROCIN 2% OINT 22 GM TUBE NS SCH ×2 (08:43→20:36)
--- NOTE | 2016-11-28 11:54 | NUR ---
Paratransit Operator: SW met with patient at bedside to assess needs and provide support. Pt is a 61-year-old female admitted to ARU due to COPD. Upon social services specialist interview, pt presented with a pressured speech but was calm and cooperative with interview. Pt reported to live at home with her sister. She reported to have three sons, however all are not local. Pt reported she has a home health ([facility]) nurse visit her twice a week, however reported to need further assistance at home. Pt stated "My sister doesn't like people in her home, and sometimes i need help with cooking and cleaning." Per pt, she has had an SS caregiver in the past and reapplied last month. pt stated her goal is to "return home when I recuperated." She appears motivated in complying with rehab goals, and stated "every day I get a little better." SW engaged in active listening and provided supportive counseling. SW will provide linkage to resources (care giving referrals). SW will speak with pt's family regarding additional care at home and advocate for pt. SW will address issues of loss related to hospitalization.
--- NOTE | 2016-11-28 13:20 | NUR ---
REHAB IDT SUMMAMRY
[2016-11-28] MEDS: INSULIN REGULAR, HUMAN 300 UNIT/3 ML VIAL SQ PRN (17:07)
[2016-11-28] MEDS: DIAZEPAM 10 MG TABLET PO PRN (17:44)
--- NOTE | 2016-11-28 17:56 | NUR ---
Pt. oob to bathroom and chair using walker with good tolerance. Good appetite. Pain control good until 1600. Pt reports severe pain and very upset due to delay in pain med administration. Dr. Harman spoke with pt and valium prn ordered. Pt. reports feeling calm and pain slightly better. . Resting in bed.
[2016-11-28] MEDS: ATORVASTATIN 40 MG TABLET PO SCH (20:34)
[2016-11-28 20:44] VITALS: BP 102/61
[2016-11-28] MEDS: MAGNESIUM HYDROXIDE 30 ML LIQUID UDC PO PRN (23:11)
[2016-11-29] MEDS: HYDROCODONE/APAP 10-325 MG TABLET PO PRN ×4 (03:57→22:06)
[2016-11-29] MEDS: PROMETHAZINE HCL 25 MG TABLET PO PRN ×4 (03:58→22:07)
[2016-11-29] MEDS: TRAMADOL HCL 50 MG TABLET PO PRN ×3 (05:56→18:43)
[2016-11-29] MEDS: GABAPENTIN 300 MG CAPSULE PO SCH ×3 (06:00→21:20)
[2016-11-29] MEDS: PANTOPRAZOLE SODIUM 40 MG TABLET.DR PO SCH (06:00)
[2016-11-29] MEDS: DIAZEPAM 10 MG TABLET PO PRN ×3 (06:05→18:43)
[2016-11-29] MEDS: ACETAMINOPHEN 325 MG TABLET PO PRN (06:42)
[2016-11-29] MEDS: BLOOD SUGAR DIAGNOSTIC 1 EACH STRIP VI SCH ×4 (07:16→22:10)
[2016-11-29 08:10] VITALS: BP 126/72
[2016-11-29] MEDS: LIDOCAINE 5% PATCH TD SCH ×2 (09:00→09:23)
[2016-11-29] MEDS: MUPIROCIN 2% OINT 22 GM TUBE NS SCH ×2 (09:20→21:21)
[2016-11-29] MEDS: FUROSEMIDE 20 MG TABLET PO SCH (09:21)
[2016-11-29] MEDS: ISOSORBIDE MONONITRATE 60 MG TAB.SR.24H PO SCH (09:21)
[2016-11-29] MEDS: ASPIRIN EC 81 MG TABLET.DR PO SCH (09:21)
[2016-11-29] MEDS: BACLOFEN 10 MG TABLET PO SCH ×2 (09:21→21:20)
[2016-11-29] MEDS: METOPROLOL TARTRATE 25 MG TABLET PO SCH ×2 (09:22→21:20)
[2016-11-29] MEDS: POTASSIUM CHLORIDE 10 MEQ CAPSULE.SA PO SCH (09:22)
[2016-11-29] MEDS: SENNOSIDES/DOCUSATE SODIUM TABLET PO SCH (09:22)
[2016-11-29] MEDS: predniSONE 20 MG TABLET PO SCH (09:28)
[2016-11-29] MEDS: IPRATROPIUM BROMIDE 0.5 MG/2.5 ML NEBU NEB PRN (17:02)
[2016-11-29] MEDS: ALBUTEROL SULFATE 2.5 MG/3 ML NEBU NEB PRN (17:02)
[2016-11-29] MEDS: INSULIN REGULAR, HUMAN 300 UNIT/3 ML VIAL SQ PRN ×2 (17:07→22:11)
--- NOTE | 2016-11-29 17:36 | NUR ---
Patient alert/oriented x3, labile mood, easily irritable especially when PRN meds are not given right away, c/o low back and right hip pain at 9/10, norco 10-325 1 tab PO and phenergan 25mg Po was given at 1014, reassessed in an hour, pain 5/10. BS result at zief=990, no coverage and at [id number], 2 units humulin R given. Patient ambulates with PT and do active exercises in am, tolerated well. Patient requested for breakthrough pain, tramadol 50mg was given at 1231 for pain 6/10, reassessed in an hour, pain 4/10. Patient ate 100% breakfast, lunch and dinner. REmains on contact precautions for MRSA Nares. Medication compliant and cooperative. Will continue to monitor for safety and needs.
[2016-11-29 19:51] VITALS: BP 122/76
[2016-11-29] MEDS: ATORVASTATIN 40 MG TABLET PO SCH (21:20)
[2016-11-29] MEDS: MAGNESIUM HYDROXIDE 30 ML LIQUID UDC PO PRN (22:07)
[2016-11-30] MEDS: TRAMADOL HCL 50 MG TABLET PO PRN ×4 (00:33→21:00)
--- NOTE | 2016-11-30 05:20 | NUR ---
nsg: pt always c/o back pain, received norco, and ultram. slept entire night. ambulatory using fww with assist. cont to monitor.
[2016-11-30] MEDS: DIAZEPAM 10 MG TABLET PO PRN ×2 (06:21→16:31)
[2016-11-30] MEDS: PANTOPRAZOLE SODIUM 40 MG TABLET.DR PO SCH ×2 (06:21→08:45)
[2016-11-30] MEDS: GABAPENTIN 300 MG CAPSULE PO SCH ×3 (06:21→21:01)
[2016-11-30] MEDS: HYDROCODONE/APAP 10-325 MG TABLET PO PRN ×3 (06:28→18:09)
[2016-11-30] MEDS: PROMETHAZINE HCL 25 MG TABLET PO PRN (06:28)
[2016-11-30] MEDS: BLOOD SUGAR DIAGNOSTIC 1 EACH STRIP VI SCH ×4 (06:30→21:21)
--- NOTE | 2016-11-30 07:05 | NUR ---
LUCEROG RECEIVED REPORT FROM METAL FENCE ERECTOR NURSE, PT RESTING IN BED, NO DISTRESS, WILL CONTINUE TO MONITOR, CALL LIGHT IN REACH.
[2016-11-30 08:00] VITALS: BP 120/70
[2016-11-30] MEDS: ACETAMINOPHEN 325 MG TABLET PO PRN (08:44)
[2016-11-30] MEDS: SENNOSIDES/DOCUSATE SODIUM TABLET PO SCH (08:44)
[2016-11-30] MEDS: predniSONE 10 MG TABLET PO SCH (08:44)
[2016-11-30] MEDS: ASPIRIN EC 81 MG TABLET.DR PO SCH (08:45)
[2016-11-30] MEDS: ISOSORBIDE MONONITRATE 60 MG TAB.SR.24H PO SCH (08:45)
[2016-11-30] MEDS: BACLOFEN 10 MG TABLET PO SCH ×2 (08:45→21:01)
[2016-11-30] MEDS: FUROSEMIDE 20 MG TABLET PO SCH (08:46)
[2016-11-30] MEDS: LIDOCAINE 5% PATCH TD SCH ×2 (08:46→08:47)
[2016-11-30] MEDS: METOPROLOL TARTRATE 25 MG TABLET PO SCH ×2 (08:46→21:02)
[2016-11-30] MEDS: POTASSIUM CHLORIDE 10 MEQ CAPSULE.SA PO SCH (08:52)
[2016-11-30] MEDS: MUPIROCIN 2% OINT 22 GM TUBE NS SCH ×2 (08:52→21:19)
--- NOTE | 2016-11-30 09:30 | NUR ---
NSG PT C/O BACK PAIN, GAVE TRAMADOL AND ACETAMINOPHEN PO, WILL CONTINUE TO MONITOR.
[2016-11-30] MEDS: ALBUTEROL SULFATE 2.5 MG/3 ML NEBU NEB PRN (14:02)
[2016-11-30] MEDS: IPRATROPIUM BROMIDE 0.5 MG/2.5 ML NEBU NEB PRN (14:02)
--- NOTE | 2016-11-30 14:52 | NUR ---
NSG PT RESTING IN BED NO C/O PAIN, CALL LIGHT IN REACH.
[2016-11-30] MEDS: INSULIN REGULAR, HUMAN 300 UNIT/3 ML VIAL SQ PRN ×2 (18:14→21:21)
[2016-11-30] MEDS: MAGNESIUM HYDROXIDE 30 ML LIQUID UDC PO PRN (20:59)
[2016-11-30] MEDS: ATORVASTATIN 40 MG TABLET PO SCH (21:01)
[2016-11-30] MEDS: diphenhydrAMINE 50 MG CAPSULE PO PRN (21:01)
[2016-12-01] MEDS: HYDROCODONE/APAP 10-325 MG TABLET PO PRN ×4 (00:11→19:01)
[2016-12-01] MEDS: PROMETHAZINE HCL 25 MG TABLET PO PRN ×4 (00:12→19:00)
--- NOTE | 2016-12-01 05:54 | NUR ---
PT SLEPT WELL THROUGH THE NIGHT AND WAS EASILY AWOKEN, PT COMPLAINED OF PAIN, MEDICATION WAS GIVEN BUT WAS ONLY SLIGHTLY EFFECTIVE. PT DENIED HAVING ANY DIFFICULTY BREATHING BUT SOME LABORED BREATHING WAS NOTED AFTER PT ATE HER DINNER, PT WAS PUT ON 2L NC FOR A SHORT TIME WHICH WAS EFFECTIVE. PT WAS SEEN EATING PIZZA AT NIGHT, PT WAS EDUCATED THAT HER PIZZA IS VERY HIGH IS SODIUM AND FOLLOWING A HEALTHY DIET WOULD BE VERY BENEFICIAL WHEN SHE IS HAVING CHF. PT VERBALIZED HER UNDERSTANDING BUT REFUSED TO FOLLOW DIETARY GUIDELINES. ALL NEEDS MET, SAFETY MEASURES ARE IN PLACE, CALL LIGHT WITHIN REACH, BED ALARM IS ON.
[2016-12-01] MEDS: GABAPENTIN 300 MG CAPSULE PO SCH ×3 (06:18→21:15)
[2016-12-01] MEDS: BLOOD SUGAR DIAGNOSTIC 1 EACH STRIP VI SCH ×4 (06:43→20:57)
[2016-12-01 08:00] VITALS: BP 118/89
[2016-12-01] MEDS: ALBUTEROL SULFATE 2.5 MG/3 ML NEBU NEB PRN ×2 (08:19→18:16)
[2016-12-01] MEDS: IPRATROPIUM BROMIDE 0.5 MG/2.5 ML NEBU NEB PRN ×2 (08:19→18:16)
[2016-12-01] MEDS: ASPIRIN EC 81 MG TABLET.DR PO SCH (08:40)
[2016-12-01] MEDS: SENNOSIDES/DOCUSATE SODIUM TABLET PO SCH (08:41)
[2016-12-01] MEDS: predniSONE 10 MG TABLET PO SCH (08:41)
[2016-12-01] MEDS: ISOSORBIDE MONONITRATE 60 MG TAB.SR.24H PO SCH (08:44)
[2016-12-01] MEDS: BACLOFEN 10 MG TABLET PO SCH ×2 (08:44→20:53)
[2016-12-01] MEDS: FUROSEMIDE 20 MG TABLET PO SCH (08:44)
[2016-12-01] MEDS: METOPROLOL TARTRATE 25 MG TABLET PO SCH ×2 (08:44→21:00)
[2016-12-01] MEDS: LIDOCAINE 5% PATCH TD SCH ×2 (08:45)
[2016-12-01] MEDS: POTASSIUM CHLORIDE 10 MEQ CAPSULE.SA PO SCH (08:45)
[2016-12-01] MEDS: MUPIROCIN 2% OINT 22 GM TUBE NS SCH ×2 (09:22→20:53)
[2016-12-01] MEDS: BUDESONIDE 0.5 MG/2 ML NEBU NEB SCH ×2 (11:02→19:56)
[2016-12-01] MEDS: TRAMADOL HCL 50 MG TABLET PO PRN (14:57)
[2016-12-01] MEDS: DIAZEPAM 10 MG TABLET PO PRN (15:14)
[2016-12-01] MEDS: diphenhydrAMINE 50 MG CAPSULE PO PRN (17:14)
[2016-12-01] MEDS: INSULIN REGULAR, HUMAN 300 UNIT/3 ML VIAL SQ PRN (17:16)
[2016-12-01] MEDS: MAGNESIUM HYDROXIDE 30 ML LIQUID UDC PO PRN (18:57)
[2016-12-01 20:47] VITALS: BP 128/72
[2016-12-01] MEDS: ATORVASTATIN 40 MG TABLET PO SCH (20:53)
--- NOTE | 2016-12-01 23:45 | NUR ---
NSG: Received patient laying in bed. Alert and verbally responsive. Able to make needs known. Denies any pain and discomfort. No acute distress. On contact precautions for MRSA nares. No c/o pain and discomfort at this time. No acute distress. No SOB. Kept clean and dry. All needs attended to promptly. Call light within reach. Will continue to monitoring for safety.
[2016-12-02] MEDS: ALBUTEROL SULFATE 2.5 MG/3 ML NEBU NEB PRN ×3 (01:51→16:11)
[2016-12-02] MEDS: IPRATROPIUM BROMIDE 0.5 MG/2.5 ML NEBU NEB PRN ×3 (01:51→16:11)
[2016-12-02] MEDS: HYDROCODONE/APAP 10-325 MG TABLET PO PRN ×3 (02:13→16:13)
[2016-12-02] MEDS: PROMETHAZINE HCL 25 MG TABLET PO PRN ×3 (02:15→16:13)
--- NOTE | 2016-12-02 02:15 | NUR ---
NSG: PATIENT C/O BACK PAIN , NORCO 10/325 MG PO GIVEN.
--- NOTE | 2016-12-02 03:15 | NUR ---
NSG: PATIENT C/O NAUSEA. PHENERGAN 25 MG PO GIVEN. Addendum: 12/02/16 at 0343 by DANIELLA CANO LVN PHENERGAN 25 MG PO GIVEN @ 0215 AM NOT 0315 AM.
--- NOTE | 2016-12-02 03:15 | NUR ---
NSG: PATIENT STATED I AMFEELING BETTER NOW.PAIN LEVEL IS DOWN AND NO MORE NAUSEA. PRN EFFECTIVE.
[2016-12-02] MEDS: diphenhydrAMINE 50 MG CAPSULE PO PRN ×3 (03:35→20:43)
--- NOTE | 2016-12-02 03:36 | NUR ---
nsg: patient c/o itching. Benadryl 50 mg po given.
[2016-12-02] MEDS: GABAPENTIN 300 MG CAPSULE PO SCH ×3 (06:08→22:36)
[2016-12-02] MEDS: PANTOPRAZOLE SODIUM 40 MG TABLET.DR PO SCH (06:08)
[2016-12-02] MEDS: DIAZEPAM 10 MG TABLET PO PRN ×2 (06:28→18:33)
[2016-12-02] MEDS: TRAMADOL HCL 50 MG TABLET PO PRN ×3 (06:28→18:33)
[2016-12-02] MEDS: BLOOD SUGAR DIAGNOSTIC 1 EACH STRIP VI SCH ×4 (06:35→20:06)
--- NOTE | 2016-12-02 06:55 | NUR ---
NSG: PT REMAIN CALM AND COOPERATIVE WITH CARE, PT COMPLAINED OF PAIN, MEDICATED FOR PAIN ,NAUSEA,ITCHING. PT DENIED HAVING SOB, . PT WAS SEEN EATING FAST FOOD AT NIGHT, PT WAS EDUCATED THAT HER FAST FOOD IS NOT HEALTH FOR CHF. PT VERBALIZED HER UNDERSTANDING BUT REFUSED TO FOLLOW DIETARY GUIDELINES. ALL NEEDS MET, SAFETY MEASURES ARE IN PLACE, CALL LIGHT WITHIN REACH, BED ALARM IS ON.
[2016-12-02 07:40] VITALS: BP 120/70
--- NOTE | 2016-12-02 08:15 | NUR ---
Received patient awake, alert and oriented. Sitting in bed. Not in any form of distress. Still with pain over shoulders and lower back. PRN [place] given. patient said she wants to take Phenergan because Hanna makes her nauseated. Phenergan PRN given.
[2016-12-02] MEDS: BUDESONIDE 0.5 MG/2 ML NEBU NEB SCH ×2 (09:04→19:51)
[2016-12-02] MEDS: predniSONE 10 MG TABLET PO SCH (09:09)
[2016-12-02] MEDS: MUPIROCIN 2% OINT 22 GM TUBE NS SCH (09:10)
[2016-12-02] MEDS: FUROSEMIDE 20 MG TABLET PO SCH (09:10)
[2016-12-02] MEDS: ISOSORBIDE MONONITRATE 60 MG TAB.SR.24H PO SCH (09:11)
[2016-12-02] MEDS: BACLOFEN 10 MG TABLET PO SCH ×2 (09:12→20:10)
[2016-12-02] MEDS: ASPIRIN EC 81 MG TABLET.DR PO SCH (09:12)
[2016-12-02] MEDS: SENNOSIDES/DOCUSATE SODIUM TABLET PO SCH (09:12)
[2016-12-02] MEDS: METOPROLOL TARTRATE 25 MG TABLET PO SCH ×2 (09:12→20:44)
[2016-12-02] MEDS: POTASSIUM CHLORIDE 10 MEQ CAPSULE.SA PO SCH (09:12)
[2016-12-02] MEDS: LIDOCAINE 5% PATCH TD SCH ×2 (09:13→09:14)
[2016-12-02] MEDS ORDERED: MAGNESIUM HYDROXIDE 30 ML LIQUID UDC PO PRN (09:45)
--- NOTE | 2016-12-02 12:08 | NUR ---
Patient complains of lower back pain, rated as 9/10. PRN Tramadol given. Patient complains of feeling itching all over her body. Benadryl PRN given.
[2016-12-02] MEDS: INSULIN REGULAR, HUMAN 300 UNIT/3 ML VIAL SQ PRN ×2 (12:17→17:12)
--- NOTE | 2016-12-02 16:15 | NUR ---
Complained of right hip pain rated as 9/10. PRN [place] given. Phenergan PRN given.
[2016-12-02] MEDS: MAGNESIUM HYDROXIDE 30 ML LIQUID UDC PO PRN (18:33)
--- NOTE | 2016-12-02 18:44 | NUR ---
complained of pain over right and left shoulder and right hip rated as 9/10. Tramadol given. Patient is anxious, Valium given. No bowel movement, milk of magnesia given.
--- NOTE | 2016-12-02 19:30 | NUR ---
NSG: Received patient awake, alert and oriented. laying in bed. no acute distress noted. no c/o pain or discomfort this time.
--- NOTE | 2016-12-02 19:35 | NUR ---
nsg: call light w/in reach.
[2016-12-02] MEDS: ATORVASTATIN 40 MG TABLET PO SCH (20:09)
[2016-12-02] MEDS: DOCUSATE SODIUM 100 MG CAPSULE PO SCH (20:09)
[2016-12-02 20:18] VITALS: BP 106/69
--- NOTE | 2016-12-02 20:46 | NUR ---
NSG: PATIENT C/O ITCHING. BENADRYL 50 MG PO GIVEN.
--- NOTE | 2016-12-02 20:57 | NUR ---
nsg: patient c/o coughing. chest xray done as md ordered.
--- NOTE | 2016-12-02 21:46 | NUR ---
NSG: PATIENT STATED I AM FEELING BETTER NOW. PRN EFFECTIVE.
--- NOTE | 2016-12-03 00:24 | NUR ---
NSG: PATIENT SLEEPING EYE CLOSE. NO S/S OF PAIN OR DISCOMFORT THIS TIME. CONTINUE PLAN OF CARE.
[2016-12-03] MEDS: MAGNESIUM HYDROXIDE 30 ML LIQUID UDC PO PRN (02:07)
--- NOTE | 2016-12-03 02:07 | NUR ---
NSG: PATIENT C/O NAUSEA. PHENERGAN 25MG PO GIVEN.
--- NOTE | 2016-12-03 02:07 | NUR ---
NSG: PATIENT C/O CONSTIPATION.MOM 30 ML PO GIVEN.
[2016-12-03] MEDS: HYDROCODONE/APAP 10-325 MG TABLET PO PRN ×4 (02:08→20:51)
[2016-12-03] MEDS: PROMETHAZINE HCL 25 MG TABLET PO PRN ×4 (02:08→20:49)
--- NOTE | 2016-12-03 02:09 | NUR ---
NSG: PATIENT C/O SHOULDER PAIN. NORCO 10/325 MG PO GIVEN.
[2016-12-03] MEDS: ALBUTEROL SULFATE 2.5 MG/3 ML NEBU NEB PRN ×3 (02:27→15:28)
[2016-12-03] MEDS: IPRATROPIUM BROMIDE 0.5 MG/2.5 ML NEBU NEB PRN ×3 (02:28→15:28)
--- NOTE | 2016-12-03 02:40 | NUR ---
NSG: PATIENT C/O SOB AND NOTED WHEEZING. HHN TX GIVEN VIA RT. Dr. WILSON CALLED AND NOTIFIED PATIENT IS WHEEZING.RECEIVED ORDERE FOR BNP IN AM.CHARGE NURSE MADE AWARE.
--- NOTE | 2016-12-03 03:10 | NUR ---
NSG: PATIENT STATED I AM FEELING BETTER NOW. NO MORE NAUSEA. PRN EFFECTIVE.
--- NOTE | 2016-12-03 03:10 | NUR ---
NSG: PATIENT STATED PAIN LEVEL IS DOWN TO ONE. PRN EFFECTIVE FOR PAIN.
--- NOTE | 2016-12-03 03:48 | NUR ---
pt continues to have non productive cough. pt put on scd. will monitor for complications.
[2016-12-03] MEDS: TRAMADOL HCL 50 MG TABLET PO PRN ×3 (05:02→18:48)
--- NOTE | 2016-12-03 05:15 | NUR ---
NSG: SLEPT WELL THROUGH THE NIGHT. NO SOB NOTED THIS TIME. ULTRAM 50 MG PO GIVEN FOR PAIN.CALL LIGHT W/IN REACH.CONTINUE PLAN OF CARE.
[2016-12-03] MEDS: GABAPENTIN 300 MG CAPSULE PO SCH ×3 (06:00→21:49)
[2016-12-03] MEDS: PANTOPRAZOLE SODIUM 40 MG TABLET.DR PO SCH (06:10)
[2016-12-03] MEDS: DIAZEPAM 10 MG TABLET PO PRN ×2 (06:11→11:51)
[2016-12-03] MEDS: BLOOD SUGAR DIAGNOSTIC 1 EACH STRIP VI SCH ×4 (06:19→21:39)
[2016-12-03 07:35] VITALS: BP 147/84
--- NOTE | 2016-12-03 07:46 | NUR ---
Received patient awake, alert and oriented. Sitting at bed. Not in any form of distress. With pain over right hip and shoulders rated as 9/10. With patent clay cath.
[2016-12-03] MEDS: BUDESONIDE 0.5 MG/2 ML NEBU NEB SCH ×2 (08:07→19:12)
[2016-12-03] MEDS: LIDOCAINE 5% PATCH TD SCH ×2 (09:19)
[2016-12-03] MEDS: BACLOFEN 10 MG TABLET PO SCH ×2 (09:20→20:51)
[2016-12-03] MEDS: diphenhydrAMINE 50 MG CAPSULE PO PRN ×2 (09:20→18:47)
[2016-12-03] MEDS: ASPIRIN EC 81 MG TABLET.DR PO SCH (09:20)
--- NOTE | 2016-12-03 09:20 | NUR ---
Complained of pain over shoulder and back rated as 9/10. PRN [place] given. Patient requested for Phenergan together with [place] as well. Patient also requested for Benadryl and said she feels itchy all over.
[2016-12-03] MEDS: METOPROLOL TARTRATE 25 MG TABLET PO SCH ×2 (09:21→20:48)
[2016-12-03] MEDS: SENNOSIDES/DOCUSATE SODIUM TABLET PO SCH (09:21)
[2016-12-03] MEDS: ISOSORBIDE MONONITRATE 60 MG TAB.SR.24H PO SCH (09:22)
[2016-12-03] MEDS: POTASSIUM CHLORIDE 10 MEQ CAPSULE.SA PO SCH (09:22)
[2016-12-03] MEDS: FUROSEMIDE 20 MG TABLET PO SCH (09:22)
--- NOTE | 2016-12-03 11:49 | NUR ---
Tolerated therapy well. Complained of pain over right shoulder and leg. Tramadol given. Patient anxious, Valium given.
--- NOTE | 2016-12-03 15:00 | NUR ---
Complained of pain over shoulders and right hip rated as 9.. PRN N
--- NOTE | 2016-12-03 18:49 | NUR ---
COMPLAINED OF ITCHING OVER BACK. COMPLAINED OF PAIN OVER LOWER BACK AND SHOULDERS RATED 8/10. PRN MEDICATION GIVEN.
--- NOTE | 2016-12-03 20:00 | NUR ---
PT ALERT AND ORIENTED IN BED. NO DISTRESS NOTED. HOB ELEVATED. COMPLIANT WITH NURSING CARE AND MEDICATION. SAFETY MAINTAINED. CALL LIGHT WITHIN REACH.
[2016-12-03] MEDS: DOCUSATE SODIUM 100 MG CAPSULE PO SCH (20:51)
[2016-12-03] MEDS: ATORVASTATIN 40 MG TABLET PO SCH (20:51)
[2016-12-03] MEDS: MUPIROCIN 2% OINT 22 GM TUBE NS SCH (20:53)
[2016-12-04] MEDS: PROMETHAZINE HCL 25 MG TABLET PO PRN ×2 (04:48→10:47)
[2016-12-04] MEDS: HYDROCODONE/APAP 10-325 MG TABLET PO PRN ×2 (04:48→10:46)
[2016-12-04] MEDS: IPRATROPIUM BROMIDE 0.5 MG/2.5 ML NEBU NEB PRN ×2 (05:03→11:40)
[2016-12-04] MEDS: ALBUTEROL SULFATE 2.5 MG/3 ML NEBU NEB PRN ×2 (05:03→11:40)
--- NOTE | 2016-12-04 05:07 | NUR ---
PT HAVING TROUBLE BREATHING, 2L O2 NC CONTINUED, HOB ELEVATED. PRN BREATHING TX GIVEN PER RT.
[2016-12-04] MEDS: GABAPENTIN 300 MG CAPSULE PO SCH ×2 (06:01→13:34)
[2016-12-04] MEDS: PANTOPRAZOLE SODIUM 40 MG TABLET.DR PO SCH (06:01)
--- NOTE | 2016-12-04 06:10 | NUR ---
DR VERGARA RETURNED PAGE AND NOTIFIED OF PATIENT C/O SOB, AUDIBLE WHEEZING WITHOUT STETHOSCOPE, NEED FOR OXYGEN THERAPY ON AND OFF DURING THE NIGHT AFTER SHE ATE SOME PIZZA THAT SHE HAD DELIVERED TO HER LAST NIGHT, AND LAST DOCUMENTED POTASSIUM OF 4.1. RECEIVED AN ORDER FOR LASIX 40 MG PO TO BE GIVEN NOW.
[2016-12-04] MEDS ORDERED: FUROSEMIDE 40 MG TABLET PO ONE (06:15)
[2016-12-04] MEDS ORDERED: FUROSEMIDE 40 MG TABLET ONE (06:22)
[2016-12-04] MEDS: BLOOD SUGAR DIAGNOSTIC 1 EACH STRIP VI SCH ×2 (06:30→12:08)
--- NOTE | 2016-12-04 07:18 | NUR ---
PT ALERT AND ORIENTED IN BED. NO DISTRESS NOTED. BS 92. NO COVERAGE NEEDED. 40 MG OF LASIX GIVEN ORDERED. HOB ELEVATED. SAFETY MAINTAINED. CALL LIGHT WITHIN REACH.
[2016-12-04] MEDS: BUDESONIDE 0.5 MG/2 ML NEBU NEB SCH ×2 (07:19→19:05)
--- NOTE | 2016-12-04 07:30 | NUR ---
Handoff report. Rounds to pt. Plan: med pass with assessment.
[2016-12-04 07:35] VITALS: BP 102/67
[2016-12-04] MEDS: BACLOFEN 10 MG TABLET PO SCH (08:56)
[2016-12-04] MEDS: ASPIRIN EC 81 MG TABLET.DR PO SCH (08:56)
[2016-12-04 08:57] VITALS: BP 118/82
[2016-12-04] MEDS: METOPROLOL TARTRATE 25 MG TABLET PO SCH (08:57)
[2016-12-04] MEDS: ISOSORBIDE MONONITRATE 60 MG TAB.SR.24H PO SCH (08:57)
[2016-12-04] MEDS: diphenhydrAMINE 50 MG CAPSULE PO PRN (08:58)
[2016-12-04] MEDS: SENNOSIDES/DOCUSATE SODIUM TABLET PO SCH (08:58)
[2016-12-04] MEDS: TRAMADOL HCL 50 MG TABLET PO PRN (08:58)
[2016-12-04] MEDS: POTASSIUM CHLORIDE 10 MEQ CAPSULE.SA PO SCH (08:58)
[2016-12-04] MEDS: DIAZEPAM 10 MG TABLET PO PRN (08:59)
[2016-12-04] MEDS: FUROSEMIDE 20 MG TABLET PO SCH (08:59)
[2016-12-04] MEDS: LIDOCAINE 5% PATCH TD SCH ×2 (09:00→09:01)
[2016-12-04] MEDS: MUPIROCIN 2% OINT 22 GM TUBE NS SCH (09:00)
--- NOTE | 2016-12-04 09:30 | NUR ---
Rounds to patient with Associate. He requests patient to follow up with his partner as he will be on vacation. He provided the patient with his card, contact information for making appointment. He concurs patient would be cleared from pulmonary standpoint for discharge.
[2016-12-04] MEDS: ACETAMINOPHEN 325 MG TABLET PO PRN (13:51)
--- NOTE | 2016-12-04 14:00 | NUR ---
Rounds with Doctor Marquita to patient room.
[2016-12-04] MEDS ORDERED: FURO-152 PO (15:05)
--- NOTE | 2016-12-04 15:58 | NUR ---
Patient central line site intact and clean dressing. Home health to follow patient at home. Has orders for discharge. Reviewed instructions, medications, and follow up appointments with pulmonology and Doctor Roe. Notified patient Doctor Marquita defers insulin on a sliding scale to her primary MD if orders are desired because he has better understanding of patient history. While giving instruction MD's office called to arrange appointment for tomorrow with patient. Patient verbalized understanding of the instruction and will take prescription sheet to pharmacy.
--- NOTE | 2016-12-04 18:48 | NUR ---
Handoff report to night nurse at this time. Addendum: 12/04/16 at 1849 by WILY CROOKS RN not applicable pt discharged
== END 2016-12-04 17:00 | disposition home health service (06) | DRG 191 ==
PROVIDERS: ADMIT Internal Medicine; ATTEND Physical Medicine & Rehabilitation Pain Medicine
DX: J44.1 Chronic obstructive pulmonary disease with (acute) exacerbation (principal); D68.59 Other primary thrombophilia; I27.2 Other secondary pulmonary hypertension; E11.22 Type 2 diabetes mellitus with diabetic chronic kidney disease; I13.0 Hypertensive heart and chronic kidney disease with heart failure and stage 1 through stage 4 chronic kidney disease, or unspecified chronic kidney disease; I50.9 Heart failure, unspecified; I69.351 Hemiplegia and hemiparesis following cerebral infarction affecting right dominant side; J98.11 Atelectasis; N39.0 Urinary tract infection, site not specified; J44.0 Chronic obstructive pulmonary disease with (acute) lower respiratory infection; J20.9 Acute bronchitis, unspecified; G89.29 Other chronic pain; I25.2 Old myocardial infarction; I34.1 Nonrheumatic mitral (valve) prolapse; K21.9 Gastro-esophageal reflux disease without esophagitis; K58.9 Irritable bowel syndrome, unspecified; M06.9 Rheumatoid arthritis, unspecified; M19.90 Unspecified osteoarthritis, unspecified site; N18.2 Chronic kidney disease, stage 2 (mild); Z87.891 Personal history of nicotine dependence; M54.6 Pain in thoracic spine; M54.2 Cervicalgia; F41.9 Anxiety disorder, unspecified; I25.10 Atherosclerotic heart disease of native coronary artery without angina pectoris; J84.10 Pulmonary fibrosis, unspecified; Z82.49 Family history of ischemic heart disease and other diseases of the circulatory system; Z83.3 Family history of diabetes mellitus; Z83.49 Family history of other endocrine, nutritional and metabolic diseases; Z80.9 Family history of malignant neoplasm, unspecified; Z90.49 Acquired absence of other specified parts of digestive tract; Z90.710 Acquired absence of both cervix and uterus; Z88.6 Allergy status to analgesic agent; Z88.1 Allergy status to other antibiotic agents; Z88.8 Allergy status to other drugs, medicaments and biological substances; M54.5 Low back pain; Z22.322 Carrier or suspected carrier of Methicillin resistant Staphylococcus aureus
CPT/HCPCS: 36415; 70030-TC; 71010; 85025; 87086; 92523; 92526; 92610; 94640; 94664; 97110; 97116; 97165; 97530; 97535; J1815; J3590; J7512; Q0163; Q0169